=== PATIENT | female | born 1995 | race Caucasian/White ===

== ENCOUNTER 2017-12-13 17:18 | Emergency (ER) | payer OTHER ==
[~2017-12-13] VITALS: Ht 160 cm; Wt 61.0 kg
[~2017-12-13 17:18] MED LIST: NORETAB29 PO
[2017-12-13 17:34] VITALS: TEMP 36.7; Ht 160 cm; Wt 61.0 kg
[2017-12-13] MEDS ORDERED: METOCLOPRAMIDE HCL INJ 5 MG/ML 2 ML VIAL IV STA (19:41)
[2017-12-13] MEDS ORDERED: ONDANSETRON INJ 2 MG/ML 2 ML VIAL IV STA (19:41)
[2017-12-13] MEDS ORDERED: SODIUM CHLORIDE 0.9% 1000ML 1,000 ML IV STA (19:41)
[2017-12-13 20:16] LABS: BASO % 0.2 %; BASO ABS # 0.02 K/uL (0-0.2); EOS % 0.1 %; EOS ABS # 0.01 K/uL (0-0.5); HEMATOCRIT 41.1 % (37-47); HEMOGLOBIN 14.8 g/dL (12.0-16.0); IG# 0.01 K/uL (0.00-0.02); LYMPH % 15.2 %; MEAN CELL VOLUME 82.4 fL (80-100); MEAN CORPUSCULAR HEMOGLOBIN 29.7 pg (25-34); MEAN PLATELET VOLUME 8.7 fL (7.4-10.4); MONO % 4.2 %; MONO ABS # 0.39 K/uL (0.11-0.59); NEUT % 80.2 %; NEUT ABS # 7.41 K/uL (1.4-6.5); PLATELET COUNT 221 K/uL (130-400); RED CELL DISTRIBUTION WIDTH CV 12.8 % (11.5-14.5); RED CELL DISTRIBUTION WIDTH SD 38.4 fL (36.4-46.3); WHITE BLOOD COUNT 9.24 K/uL (4.8-10.8)
--- NOTE | 2017-12-13 20:40 | DIAGNOSTIC IMAGING REPORT ---
HEAD WITHOUT CONTRAST (CT) CLINICAL HISTORY: 22 years-old Female with Evaluate for hemorrhage or pathology. Acute headache with dizziness TECHNIQUE: Multiple axial CT images of the head were obtained without contrast. A dose lowering technique was utilized adhering to the principles of ALARA. CT DOSE: 537.48 mGy.cm COMPARISON: None. FINDINGS: No acute intracranial hemorrhage, midline shift, intracranial mass, hydrocephalus, territorial ischemia or abnormal extra-axial collection. The calvarium is intact. The paranasal sinuses, mastoid air cells, and middle ear cavities are clear. IMPRESSION: No acute intracranial abnormality. The above report was generated using voice recognition software. It may contain grammatical, syntax or spelling errors. Electronically signed by: Rubén Puente M.D. 12/13/2017 8:38 PM Dictated Date/Time: 12/13/2017 8:37 PM
[2017-12-13 20:41] LABS: CALCIUM 8.8 mg/dl (8.5-10.1); CREATININE 0.87 mg/dl (0.60-1.20); POTASSIUM 3.8 mmol/L (3.5-5.1)
[2017-12-13] MEDS ORDERED: LXP10 PO (20:46)
[2017-12-13 22:39] VITALS: BP 100/56; PULSE 63; O2SAT 98
--- NOTE | 2017-12-14 13:11 | EMERGENCY ROOM VISIT NOTE ---
ED Visit Note First contact with patient: 19:17 CHIEF COMPLAINT: Headache. HISTORY OF PRESENT ILLNESS: Ms. Espinoza is a 22 year-old white female who is brought into the ED accompanied by 2 friends complaining of a severe headache. Historically patient denies any previous history of primary headaches. She reports a gradual onset of a severe headache that started approximately 5 hours ago. The headache has been constant and it is increasing in severity. This is the worst headache of the life. Currently she describes the headache as a crushing sensation/pain in the bifrontal area. She rates the pain a 10/10. The pain is nonradiating. She reports she has not taken any medications for her headache prior to arrival at the hospital. Associated with her pain she reports that she has been having dizziness, nausea with one episode of vomiting, light sensitivity and blurry vision. She does report her symptoms exacerbate with head movement and she feels slightly better when she closes her eyes and lie still. The friends that are present with her says that she has "passed out twice in the last 15 minutes"; when questioned for specifics they report the patient is normally lying semierect and her head falls to the left and she closes her eyes and is not immediately responsive to verbal stimuli. After a few seconds she opens her eyes and is once again responsive to verbal stimuli. They have not seen any seizure activity. This has been observed by different staff members and no postictal symptoms are present. She denies fever, chills, sweats, skin eruptions, skin color changes, recent trauma to the head, hearing changes, difficulty speaking, difficulty swallowing , difficulty ambulating/coordinating body movements, recent upper respiratory tract symptoms, sore throat, neck pain/stiffness, chest pain, shortness of breath, extremity weakness/numbness/tingling. REVIEW OF SYSTEMS: As noted above in History of Present Illness; all body systems are reviewed with the patient and found to be negative unless noted above otherwise. PAST MEDICAL HISTORY: Depression. CURRENT MEDICATIONS: control, Lexapro. ALLERGIES TO MEDICATIONS: Elavil. SOCIAL HISTORY: Patient is currently university student; she feels safe in her home environment; she denies tobacco use. PHYSICAL EXAM: Vital Signs: Date Time Temp Pulse Resp B/P (MAP) Pulse Ox O2 Delivery O2 Flow Rate FiO2 12/13/17 22:39 63 18 100/56 98 12/13/17 21:22 63 18 104/56 98 Room Air 12/13/17 21:04 76 16 97/49 98 Room Air 89 100/52 90 90/60 12/13/17 20:11 81 18 110/54 98 Room Air 12/13/17 20:04 76 12/13/17 17:34 36.7 105 16 137/78 98 Room Air GENERAL: 22 year-old white female in moderate distress due to pain, afebrile and hemodynamically stable. Found lying in a darkened room with sunglasses on. NEUROLOGIC: Awake, alert and oriented to person place and time. Answering questions appropriately and following commands. Cranial nerves II-XII grossly intact. Good short-term and long-term recall. Sitting pronator drift test negative. Romberg test deferred. Multiple times during patient evaluation she was sitting upright and then without precipitating event her head slumped to the left and she was nonverbal for a couple seconds. During these events there was a fine fasciculation of her eyelids but no other abnormal movements of the rest of the body consistent with a tonic-clonic seizure. After a couple seconds she was awake and able to answer questions again. SKIN: Warm, dry and pink. No rashes, lesions or soft tissue trauma noted. HEENT: Normocephalic, atraumatic. Skull: No bony deformity, bony crepitus, swelling or ecchymosis. No raccoons eyes or velasquez signs. No drainage from the ears of the nostril; no hemotympanum. Face: No bony deformity, bony crepitus, swelling or ecchymosis. PERRLA. EOMI without nystagmus. Funduscopic examination was deferred due to light sensitivity. Sclera anicteric. Oral cavity is moist and pink. No intraoral oral trauma was noted. Airway is patent. Intermittently patient had garbled speech that cleared sometimes in mid sentence and on her last reassessment was completely clear. No JVD. Trachea midline. BACK: No tenderness over the bony spinous portions of the cervical, thoracic and lumbar vertebrae. No nuchal rigidity or meningismus. Full range of motion of the cervical spine. No CVA tenderness. THORAX: Lungs clear to auscultation and equal bilaterally with no wheezing, crackles, rhonchi or stridor and equal chest wall movements. HEART: Regular rate and rhythm with no murmurs, rubs or gallops. ABDOMEN: Soft and nontender with bowel sounds present in all quadrants; no rigidity, rebound tenderness, organomegaly or guarding. MUSCULOSKELETAL: Initially patient refused to do muscle strength and range of muscle testings. Prior to departure she was reassessed and she had 4/5 muscle strength in all movements of the upper and lower extremities and she had full range of motion of all the joints of the upper and lower extremities. ED COURSE: Patient is assessed as noted above. Patient's medication list was reviewed. Laboratory Testing: Test 12/13/17 20:00 12/13/17 20:06 12/13/17 21:35 Range/Units White Blood Count 9.24 4.8-10.8 K/uL Red Blood Count 4.99 4.2-5.4 M/uL Hemoglobin 14.8 12.0-16.0 g/dL Hematocrit 41.1 37-47 % Mean Corpuscular Volume 82.4 80-100 fL Mean Corpuscular Hemoglobin 29.7 25-34 pg Mean Corpuscular Hemoglobin Concent 36.0 32-36 g/dl Platelet Count 221 130-400 K/uL Mean Platelet Volume 8.7 7.4-10.4 fL Neutrophils (%) (Auto) 80.2 % Lymphocytes (%) (Auto) 15.2 % Monocytes (%) (Auto) 4.2 % Eosinophils (%) (Auto) 0.1 % Basophils (%) (Auto) 0.2 % Neutrophils # (Auto) 7.41 1.4-6.5 K/uL Lymphocytes # (Auto) 1.40 1.2-3.4 K/uL Monocytes # (Auto) 0.39 0.11-0.59 K/uL Eosinophils # (Auto) 0.01 0-0.5 K/uL Basophils # (Auto) 0.02 0-0.2 K/uL RDW Standard Deviation 38.4 36.4-46.3 fL RDW Coefficient of Variation 12.8 11.5-14.5 % Immature Granulocyte % (Auto) 0.1 % Immature Granulocyte # (Auto) 0.01 0.00-0.02 K/uL Sodium Level 137 136-145 mmol/L Potassium Level 3.8 3.5-5.1 mmol/L Chloride Level 106 98-107 mmol/L Carbon Dioxide Level 23 21-32 mmol/L Anion Gap 8.0 3-11 mmol/L Blood Urea Nitrogen 11 7-18 mg/dl Creatinine 0.87 0.60-1.20 mg/dl Est Creatinine Clear Calc Drug Dose 84.6 ml/min Estimated GFR () 110.4 Estimated GFR (Non- 95.2 BUN/Creatinine Ratio 12.9 10-20 Random Glucose 89 70-99 mg/dl Calcium Level 8.8 8.5-10.1 mg/dl Thyroid Stimulating Hormone (TSH) 0.783 0.300-4.500 uIu/ml Human Chorionic Gonadotropin, Qual NEG NEG Chemistry Specimen Hemolysis Lyme Disease IgG Antibody NEG NEG Lyme Disease IgM Antibody NEG NEG Bedside Glucose 93 70-90 mg/dl Urine Color YELLOW Urine Appearance CLEAR CLEAR Urine pH 7.0 4.5-7.5 Urine Specific [place] 1.024 1.000-1.030 Urine Protein NEG NEG Urine Glucose (UA) NEG NEG Urine Ketones NEG NEG Urine Occult Blood TRACE NEG Urine Nitrite NEG NEG Urine Bilirubin NEG NEG Urine Urobilinogen NEG NEG Urine Leukocyte Esterase TRACE NEG Urine WBC (Auto) 1-5 0-5 /hpf Urine RBC (Auto) 5-10 0-4 /hpf Urine Hyaline Casts (Auto) 1-5 0-5 /lpf Urine Epithelial Cells (Auto) >30 0-5 /lpf Urine Bacteria (Auto) NEG NEG Urine Opiates Screen NEG NEG Urine Methadone, Qualitative NEG NEG Urine Barbiturates NEG NEG Urine Phencyclidine (PCP) Level NEG NEG Ur Amphetamine/Methamphetamine NEG NEG MDMA (Ecstasy) Screen NEG NEG Urine Benzodiazepines Screen NEG NEG Urine Cocaine Metabolite NEG NEG Urine Marijuana (THC) NEG NEG Head CT: Was reviewed by myself and read by the radiologist showing no acute intracranial abnormalities. EKG: Was read by myself and reviewed with Dr. Guthrie; shows normal sinus rhythm with a ventricular rate of 80 bpm. Low voltage QRS. No acute ischemic changes. No previous to compare. Orthostatic vital signs were not clinically significant. Patient was reassessed multiple times during her stay in the emergency department. The male friend that was with the patient which I believed to be his boyfriend was in communication with her mother. Mother reports she had a similar episode like tonight when she was in high school. It was felt to be related to hypotension when she was evaluated previously. Patient was hydrated with normal saline and received 1 g of acetaminophen IV and 4 mg of Zofran IV. Patient's case was reviewed with Dr. Guthrie; he independently assessed the patient we agreed on diagnostic approach, treatment, disposition and plan. Patient was educated about her condition and instructed on her treatment plan; she verbalized understanding and agreement with this plan. CLINICAL IMPRESSION: Acute headache. DECISION MAKIN-year-old female who presents for evaluation of headache. She is afebrile, well appearing, and hemodynamically stable. She has no signs of a sinus, dental , or ear infection and no evidence of meningismus. She is neurologically intact. I do not suspect a headache to be secondary to a subarachnoid hemorrhage, meningitis, encephalitis, or intracranial mass lesion. DISPOSITION: Patient was discharged to home in stable condition accompanied by 2 friends; prior to departure she was reassessed and subjectively reported she was feeling much better and rated her discomfort 3/10 with resolution of her nausea and dizziness. DISCHARGE INSTRUCTIONS: Patient was encouraged to rest and stay well-hydrated. Patient was encouraged to alternate ibuprofen and acetaminophen every 6 hours as needed for headache. Patient was encouraged to avoid alcohol use for the next 48 hours. Patient was encouraged to follow-up with Dr. Willoughby, neurologist, for specialty care and treatment. Patient was encouraged to return to the ED for return of severe headache, vomiting, personality changes, any abnormal neurological symptoms we discussed, fevers or any new/concerning symptoms.
== END 2017-12-13 22:41 | disposition home or self-care (01) ==
LOC: C.EDB 17:20 → C.EDC 22:41
DX: R51 Headache (principal); F32.9 Major depressive disorder, single episode, unspecified; Z79.3 Long term (current) use of hormonal contraceptives; Z79.899 Other long term (current) drug therapy; Z88.8 Allergy status to other drugs, medicaments and biological substances